=== PATIENT | female | born 1975 | race Caucasian/White ===

== ENCOUNTER 2020-10-28 16:50 | Emergency (ER) | payer OTHER ==
[2020-10-28 18:15] LABS: Urine Blood Negative (Negative); Urine Glucose Negative (Negative); Urine Protein Negative (Negative); Urine pH 6.5 (5.0-7.0)
[2020-10-28 18:19] LABS: Absolute Lymphocytes (CBC) 1.4 K/uL (0.7-4.9); Basophils % 0.2 % (0-1.3); Hematocrit 34.2 % (36.0-45.0); Lymphocytes % 10.7 % (15.3-44.8); MPV 7.6 fL (7.6-11.3); RBC Red Blood Cell Count 3.98 M/uL (3.86-4.86)
--- NOTE | 2020-10-28 18:23 | RAD REPORT ---
EXAM DESCRIPTION: RAD - Chest Single View - 10/28/2020 6:09 pm CLINICAL HISTORY: CONGESTION COMPARISON: No comparisons FINDINGS: Lines: None. Lungs: Ill-defined opacities in the upper lateral aspect of the left lung base. There are few opaciti es in the right lung base as well. Calcified lung nodule. Pleural: No significant pleural effusions or pneumothorax. Cardiac: The heart size is within normal limits. Bones: No acute fractures. Other: IMPRESSION: Basilar opacities, predominantly on the left side, could reflect a mild pneumonia versus atelectasis.
[2020-10-28 18:28] LABS: Protime INR 1.27
[2020-10-28] MEDS ORDERED: ACETAMINOPHEN 500 MG TAB ONE (18:41)
[2020-10-28 18:45] LABS: ALT/SGPT 48 U/L (12-78); AST/SGOT 24 U/L (15-37); Albumin 3.5 g/dL (3.4-5.0); Alkaline Phosphatase 85 U/L (45-117); BUN Blood Urea Nitrogen 6 mg/dL (7-18); Bicarbonate 22 mmol/L (21-32); Bilirubin Direct 0.1 mg/dL (0-0.2); Bilirubin Total 0.6 mg/dL (0.2-1.0); Glucose Level 94 mg/dL (74-106); Lipase 60 U/L (73-393); Magnesium 1.9 mg/dL (1.8-2.4); NT PRO-BNP 125 pg/mL (<125); Potassium 3.8 mmol/L (3.5-5.1); Protein, Total 7.7 g/dL (6.4-8.2); Sodium Level 137 mmol/L (136-145); Troponin (Emerg Dept Use Only) < 0.02 ng/mL (0.0-0.045)
[2020-10-28] MEDS ORDERED: MAGNES/ALUMIN/SIMET 30ML UCUP ONE (18:51)
[2020-10-28] MEDS ORDERED: LIDOCAINE VISCOUS 2% SOLN 15 ML UDC ONE (18:51)
--- NOTE | 2020-10-28 19:14 | RAD REPORT ---
EXAM DESCRIPTION: CT - Chest For Pe Angio - 10/28/2020 7:08 pm CLINICAL HISTORY: CHEST PAIN COMPARISON: No comparisons FINDINGS: Chest Wall: No suspicious thyroid nodules or pathologic lymphadenopathy. Lungs: Mild scattered ground-glass opacities within the lower lungs primarily. Pleura: No significant effusions or pneumothorax. Mediastinum/zachary: No pathologic lymphadenopathy. Pulmonary arteries/Aorta: No filling defect identified. No aortic aneurysm. Heart: No significant pericardial effusion. Normal heart size. Upper abdomen: No acute abnormality. Bones: No acute abnormality. All CT scans are performed using dose optimization technique as appropriate and may include automated exposure control or mA/KV adjustment according to patient size. IMPRESSION: Negative for pulmonary embolism. Mild scattered ground-glass opacities concerning for mu ltifocal pneumonia, including Covid-19 .
[2020-10-28] MEDS ORDERED: AZITHROMYCIN 250 MG TAB ONE (19:49)
--- NOTE | 2020-10-28 20:33 | RAD REPORT ---
EXAM DESCRIPTION: CTAbdomen Pelvis Wo Contrast - 10/28/2020 8:13 pm CLINICAL HISTORY: . ABD PAIN COMPARISON: No comparisons TECHNIQUE: Biphasic CT imaging of the abdomen and pelvis was performed with 100 ml non-ionic IV cont rast. All CT scans are performed using dose optimization technique as appropriate and may include automated exposure control or mA/KV adjustment according to patient size. FINDINGS: Lower chest: Mild patchy airspace disease in the lung bases. Liver: No acute abnormality or suspicious lesions. Biliary: No biliary ductal dilatation. Stomach: No significant focal abnormality. Duodenum: No significant focal abnormality. Pancreas: No significant abnormality. Spleen: No significant abnormality. Adrenal: No suspicious lesions. Kidney/ureter: No hydronephrosis. No renal calculi. Retroperitoneum: No retroperitoneal adenopathy. Vascular: No aneurysm. Bowel: Ascending colonic wall thickening. Peritoneum: No ascites or free air. Bladder: Grossly unremarkable. Reproductive: No adnexal masses. Bones: No acute fracture. Other: n/a IMPRESSION: Long segment wall thickening involving the ascending colon consistent with colitis. This may be secondary to infectious, inflammatory, as well as ischemic etiologies.
--- NOTE | 2020-10-28 20:42 | EDPHYS ---
Physician Documentation [facility] Name: Nadia Reilly Age: 45 yrs Sex: Female : 1975 Arrival Date: 10/28/2020 Time: 16:51 Bed 11 Private MD: ED Physician Kodi Musa HPI: 10/28 17:29 This 45 yrs old Female presents to ER via Ambulatory with complaints of Fever.ma2 17:29 The patient reports fever, not measured (subjective). Onset: The symptoms/episode ma2 began/occurred gradually, 1 week(s) ago. Associated signs and symptoms: Pertinent negatives: altered mental status, backache, cough, diarrhea, nausea, night sweats, runny nose, sinus drainage. Severity of symptoms: At their worst the symptoms were moderate in the emergency department the symptoms are unchanged. The patient has not experienced similar symptoms in the past. Patient had Covid 2 weeks ago, she feels better however she has right stabbing chest pain that is worse with deep breath on the, never had any heart issues, no lower extremity swelling or pain. She does not have diarrhea however she has epigastric discomfort for few months.. 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 - Social history:: Smoking status: Patient denies any tobacco usage or history of. - Family history:: not pertinent. ROS: 17:29 Constitutional: Negative for fever, chills, and weight loss. ma2 17:29 All other systems are negative. Exam: 17:29 Constitutional: This is a well developed, well nourished patient who is awake, alert, ma2 and in no acute distress. Head/Face: Normocephalic, atraumatic. Eyes: Pupils equal round and reactive to light, extra-ocular motions intact. Lids and lashes normal. Conjunctiva and sclera are non-icteric and not injected. Cornea within normal limits. Periorbital areas with no swelling, redness, or edema. ENT: Nares patent. No nasal discharge, no septal abnormalities noted. Tympanic membranes are normal and external auditory canals are clear. Oropharynx with no redness, swelling, or masses, exudates, or evidence of obstruction, uvula midline. Mucous membranes moist. Neck: Trachea midline, no thyromegaly or masses palpated, and no cervical lymphadenopathy. Supple, full range of motion without nuchal rigidity, or vertebral point tenderness. No Meningismus. Chest/axilla: Normal chest wall appearance and motion. Nontender with no deformity. No lesions are appreciated. Cardiovascular: Regular rate and rhythm with a normal S1 and S2. No gallops, murmurs, or rubs. Normal PMI, no JVD. No pulse deficits. Respiratory: Lungs have equal breath sounds bilaterally, clear to auscultation and percussion. No rales, rhonchi or wheezes noted. No increased work of breathing, no retractions or nasal flaring. Abdomen/GI: Soft, non-tender, with normal bowel sounds. No distension or tympany. No guarding or rebound. No evidence of tenderness throughout. Back: No spinal tenderness. No costovertebral tenderness. Full range of motion. Skin: Warm, dry with normal turgor. Normal color with no rashes, no lesions, and no evidence of cellulitis. MS/ Extremity: Pulses equal, no cyanosis. Neurovascular intact. Full, normal range of motion. Neuro: Awake and alert, GCS 15, oriented to person, place, time, and situation. Cranial nerves II-XII grossly intact. Motor strength 5/5 in all extremities. Sensory grossly intact. Cerebellar exam normal. Normal gait. Psych: Awake, alert, with orientation to person, place and time. Behavior, mood, and affect are within normal limits. 17:29 Musculoskeletal/extremity: DVT Exam: No signs of deep vein thrombosis. no pain, no swelling, no tenderness, negative Homans' sign noted on exam, no appreciated bluish discoloration, no erythema, no increased warmth. Vital Signs: 16:58 BP 133 / 80; Pulse 93; Resp 17; Temp 99.9(TE); Pulse Ox 98% on R/A; tw2 20:02 BP 130 / 75; Pulse 84; Resp 16; Temp 97.5; Pulse Ox 97% on R/A; Pain 0/10; bc5 21:36 BP 127 / 74; Pulse 71; Resp 15; Temp 98.5(O); Pulse Ox 100% ; Pain 0/10; bc5 MDM: 17:11 Patient medically screened. [facility] 17:29 Differential diagnosis: viral Infection, URI, bronchitis, UTI. wa2 18:54 Data reviewed: vital signs, nurses notes, Patient has left-sided pneumonia on chest [facility] x-ray, D-dimer is mildly elevated, will get a CT PE rule out. For the meantime we will give her azithromycin to treat pneumonia, since this fever started few weeks after covid syx, superimposed bacterial pneumonia is a possibility. . 19:13 Patient medically screened. [facility] 10/28 17:28 Order name: Basic Metabolic Panel [facility] 10/28 17:28 Order name: CBC with Diff [facility] 10/28 17:28 Order name: LFT's [facility] 10/28 17:28 Order name: Magnesium [facility] 10/28 17:28 Order name: NT PRO-BNP [facility] 10/28 17:28 Order name: PT-INR [facility] 10/28 17:28 Order name: Troponin (emerg Dept Use Only) [facility] 10/28 17:28 Order name: COVID-19 : Document "Date of Symptom Onset" if Symptomatic. [facility] 10/28 17:28 Order name: Lipase [facility] 10/28 17:28 Order name: Basic Metabolic Panel; Complete Time: 19:40 [facility] 10/28 17:28 Order name: Liver (Hepatic) Function; Complete Time: 19:40 [facility] 10/28 17:29 Order name: CBC with Automated Diff; Complete Time: 18:34 [facility] 10/28 17:29 Order name: Magnesium; Complete Time: 19:40 [facility] 10/28 17:29 Order name: NT PRO-BNP; Complete Time: 19:40 [facility] 10/28 17:28 Order name: XRAY Chest (1 view); Complete Time: 18:34 [facility] 10/28 17:29 Order name: Troponin (Emerg Dept Use Only); Complete Time: 19:40 [facility] 10/28 17:29 Order name: Lipase; Complete Time: 19:40 [facility] 10/28 17:29 Order name: Protime (+INR); Complete Time: 18:34 [facility] 10/28 17:31 Order name: D-Dimer [facility] 10/28 17:32 Order name: D-Dimer; Complete Time: 18:35 [facility] 10/28 18:15 Order name: Urine Dipstick-Ancillary [facility] 10/28 18:34 Order name: CT Chest For PE Angio; Complete Time: 19:40 [facility] 10/28 19:41 Order name: CT Abd/Pelvis - Without Contrast: no iv , no oral; Complete Time: 20:38 [facility] 10/28 21:33 Order name: SARS-COV-2 RT PCR [facility] 10/28 17:28 Order name: Cardiac monitoring [facility] 10/28 17:28 Order name: EKG - Nurse/Tech [facility] 10/28 17:28 Order name: IV Saline Lock [facility] 10/28 17:28 Order name: Labs collected and sent; Complete Time: 18:22 [facility] 10/28 17:28 Order name: O2 Per Protocol [facility] 10/28 17:28 Order name: O2 Sat Monitoring [facility] 10/28 17:28 Order name: Urine Dipstick-Ancillary (obtain specimen); Complete Time: 19:34 [facility] Administered Medications: 18:21 Drug: Tylenol 1000 mg Route: PO; tc5 20:09 Follow up: Response: No adverse reaction bc5 18:33 Drug: GI Cocktail without - (Maalox Suspension 30 ml, Lidocaine Liquid 2 % 15 tc5 ml) Route: PO; 19:34 Follow up: Response: No adverse reaction; Marked relief of symptoms sj1 20:09 Follow up: Response: No adverse reaction bc5 19:33 Drug: Zithromax (azithromycin) 500 mg Route: PO; sj1 20:09 Follow up: Response: No adverse reaction bc5 21:25 Drug: LevOfloxacin 750 mg Route: PO; bc5 21:25 Drug: Flagyl (metroNIDAZOLE) 500 mg Route: PO; bc5 Disposition Summary: 10/28/20 20:42 Discharge Ordered Location: Home silvia Problem: new silvia Symptoms: have improved silvia Condition: Stable silvia Diagnosis - Coronavirus infection, unspecified silvia - Pneumonia due to SARS-associated coronavirus silvia - Abdominal pain, unspecified silvia - Constipation silvia - Fever, unspecified silvia - Other specified noninfective gastroenteritis and colitis - ascending colitis silvia Followup: silvia - With: Private Physician - When: 2 - 3 days - Reason: Recheck today's complaints, Continuance of care, Re-evaluation by your physician Followup: [facility] - With: Manpreet Beach MD - When: 2 - 3 days - Reason: Recheck today's complaints, Re-evaluation by your physician Discharge Instructions: - Abdominal Pain, Adult [facility] - Constipation, Adult [place] - Fever, Adult [place] - Constipation, Adult, [id number] [facility] - 10 Things You Can Do to Manage Your COVID-19 Symptoms at Home - [facility] silvia - Colitis [facility] - Discharge Summary Sheet ma2 - COVID-19 Frequently Asked Questions [facility] Forms: - Medication Reconciliation Form [facility] - Thank You Letter [facility] - Antibiotic Education [facility] - Prescription Opioid Use [facility] - Work release form bc5 Prescriptions: - Pepcid 20 mg Oral Tablet - take 1 tablet by ORAL route every 12 hours for 10 days; 20 tablet; Refills: 0, [facility] Product Selection Permitted - Diclofenac Sodium 75 mg Oral Tablet Sustained Release - take 1 tablet by ORAL route 2 times per day; 30 tablet; Refills: 0, Product [facility] Selection Permitted - Singulair 10 mg Oral Tablet - take 1 tablet by ORAL route At bedtime; 20 tablet; Refills: 0, Product [facility] Selection Permitted - Flagyl 500 mg Oral Tablet - take 1 tablet by ORAL route 3 times per day for 7 days; 21 tablet; Refills: 0, [facility] Product Selection Permitted - levofloxacin 500 mg Oral Tablet - take 1 tablet by ORAL route once daily for 7 days; 7 tablet; Refills: 0, [facility] Product Selection Permitted Signatures: Dispatcher [employer] EDMS Kodi Musa MD MD cha Wise, Tara RN RN tw2 Radha Adame MD MD ma2 Jeanne Bustamante RN RN bc5 Gina Campuzano RN RN sj1 Blanche Groves RN RN tc5 Corrections: (The following items were deleted from the chart) 20:29 17:29 CORONAVIRUS ordered. EDAZ EDMS
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
[2020-10-28] MEDS ORDERED: metroNIDAZOLE 500 MG TABLET ONE (21:38)
[2020-10-28] MEDS ORDERED: levoFLOXacin 750 MG TAB ONE (21:40)
[2020-10-28 21:57] VITALS: BP 127/74; TEMP 98.5; O2SAT 100
== END 2020-10-28 21:37 | disposition home or self-care (01) ==
LOC: ER 16:50
DX: U07.1 COVID-19 (principal); J12.82 Pneumonia due to coronavirus disease 2019; K52.9 Noninfective gastroenteritis and colitis, unspecified; K59.00 Constipation, unspecified; R10.9 Unspecified abdominal pain; E03.9 Hypothyroidism, unspecified
CPT/HCPCS: 85025; 80048; 36415; 83735; 85610; 85379; 80076; 81003; 84484; 83690; 83880; 71275; 74176; 71045; 99284; U0003; Q9967